=== PATIENT | female | born 1995 | race Caucasian/White ===

== ENCOUNTER 2020-08-14 02:11 | Emergency (ER) | payer BC ==
[2020-08-14 02:31] VITALS: BP 109/59; PULSE 88; TEMP 99.1; BMI 21.2
[2020-08-14 03:38] LABS: HEMATOCRIT 36.4 % (32.4-45.2); HEMOGLOBIN 12.5 GM/dL (10.7-15.3); MCH 30.2 pg (25.7-33.7); MCHC 34.3 g/dl (32.0-36.0); MEAN CELL VOLUME 88.1 fl (80-96); MEAN PLT VOLUME 6.7 fl (7.5-11.1); PLATELET COUNT 475 K/MM3 (134-434); RBC 4.13 M/mm3 (3.60-5.2); RDW 12.6 % (11.6-15.6); WHITE BLOOD COUNT 11.6 K/mm3 (4.0-10.0)
[2020-08-14 04:07] LABS: POTASSIUM 3.9 mmol/L (3.5-5.1)
[2020-08-14 04:09] LABS: CALCIUM 9.7 mg/dL (8.5-10.1)
[2020-08-14 04:10] LABS: ALBUMIN 4.2 g/dl (3.4-5.0); BLOOD UREA NITROGEN 18.2 mg/dL (7-18)
[2020-08-14 04:13] LABS: CREATININE 0.9 mg/dL (0.55-1.3)
[2020-08-14 04:14] LABS: BILIRUBIN,TOTAL 0.3 mg/dL (0.2-1); TOT PROT 7.7 g/dl (6.4-8.2)
== END 2020-08-14 04:48 | disposition home or self-care (01) ==
LOC: JER 02:11
DX: R20.2 Paresthesia of skin (principal)
CPT/HCPCS: 36415; 80053; 85027; 99283-25

== ENCOUNTER 2020-08-29 20:35 | Inpatient (IN) | payer BC ==
[2020-08-29 20:48] VITALS: BMI 21.2
[2020-08-29] MEDS ORDERED: SODIUM CHLORIDE 0.9% 1000 ML INFUS.BAG IV ONE (21:26)
[2020-08-29] MEDS ORDERED: OXcarbazepine 300 MG/5 ML 250 ML BULK BOTTLE PO ONE (21:35)
[2020-08-29 21:40] LABS: HEMATOCRIT 35.8 % (32.4-45.2); LYMPH % 11.7 % (8-40); MCH 30.3 pg (25.7-33.7); MCHC 33.5 g/dl (32.0-36.0); MEAN CELL VOLUME 90.6 fl (80-96); MEAN PLT VOLUME 7.2 fl (7.5-11.1); MONO % 10.2 % (3.8-10.2); NEUT % 77.1 % (42.8-82.8); PLATELET COUNT 369 K/MM3 (134-434); RBC 3.96 M/mm3 (3.60-5.2); RDW 13.8 % (11.6-15.6); WHITE BLOOD COUNT 13.4 K/mm3 (4.0-10.0)
[2020-08-29 21:50] LABS: POTASSIUM 4.7 mmol/L (3.5-5.1)
[2020-08-29 21:51] LABS: ALBUMIN 3.8 g/dl (3.4-5.0); BLOOD UREA NITROGEN 18.8 mg/dL (7-18)
[2020-08-29 21:57] LABS: BILIRUBIN,TOTAL 0.2 mg/dL (0.2-1); TOT PROT 7.4 g/dl (6.4-8.2)
[2020-08-29] MEDS ORDERED: LORazepam 2 MG/ML SDV VIAL IVPUSH ONE (22:02)
[2020-08-29] MEDS ORDERED: LORazepam 2 MG/ML SDV VIAL ONE (22:03)
[2020-08-30] MEDS ORDERED: LORazepam 2 MG/ML SDV VIAL IVPUSH PRN (01:14)
[2020-08-30] MEDS: SODIUM CHLORIDE 1,000 ML IV SCH (01:25)
[2020-08-30] MEDS ORDERED: HEPARIN NA (PORCINE) 5,000 UNITS/ML 1ML VIAL SQ SCH (02:00)
[2020-08-30] MEDS ORDERED: LORazepam 2 MG/ML SDV VIAL ONE (02:51)
[2020-08-30 03:54] LABS: PH,URINE 6.5 (5.0-8.0); URINE APPEARANCE CLEAR; URINE BILIRUBIN NEGATIVE (NEGATIVE); URINE COLOR YELLOW; URINE GLUCOSE (UA) NEGATIVE (NEGATIVE); URINE KETONE NEGATIVE (NEGATIVE); URINE LEUK ESTERASE NEGATIVE (NEGATIVE); URINE NITRITE NEGATIVE (NEGATIVE); URINE PROTEIN NEGATIVE (NEGATIVE); URINE UROBILINOGEN 0.2 mg/dL (0.2-1.0)
[2020-08-30 04:12] LABS: URINE AMPHETAMINES NEGATIVE ng/ml (CUTOFF=500)
[2020-08-30 04:13] LABS: COCAINE, UR NEGATIVE ng/ml (CUTOFF=300)
[2020-08-30 04:14] LABS: PHENCYCLIDINE,URINE NEGATIVE ng/ml (CUTOFF=25)
[2020-08-30 04:15] LABS: METHADONE, UR NEGATIVE ng/ml (CUTOFF=300); OPIATES, URI NEGATIVE ng/ml (CUTOFF=300); URINE BARBITURATES NEGATIVE ng/ml (CUTOFF=200); URINE BENZODIAZEPINES NEGATIVE ng/ml (CUTOFF=200)
[2020-08-30] MEDS: HEPARIN NA (PORCINE) 5,000 UNITS/ML 1ML VIAL SQ SCH ×2 (06:02→14:04)
[2020-08-30 07:52] LABS: BASO % 0.7 % (0-2.0); EOS % 0.4 % (0-4.5); HEMOGLOBIN 11.4 GM/dL (10.7-15.3); LYMPH % 23.9 % (8-40); MCH 30.1 pg (25.7-33.7); MCHC 33.6 g/dl (32.0-36.0); MEAN CELL VOLUME 89.6 fl (80-96); MEAN PLT VOLUME 7.5 fl (7.5-11.1); MONO % 9.5 % (3.8-10.2); NEUT % 65.5 % (42.8-82.8); PLATELET COUNT 366 K/MM3 (134-434); RDW 13.5 % (11.6-15.6); WHITE BLOOD COUNT 11.1 K/mm3 (4.0-10.0)
[2020-08-30 08:10] LABS: POTASSIUM 4.2 mmol/L (3.5-5.1)
[2020-08-30 08:17] LABS: CALCIUM 8.4 mg/dL (8.5-10.1)
[2020-08-30 08:19] LABS: ALBUMIN 3.5 g/dl (3.4-5.0); BLOOD UREA NITROGEN 12.8 mg/dL (7-18); MAGNESIUM 2.3 mg/dL (1.8-2.4)
[2020-08-30 08:21] LABS: CREATININE 0.7 mg/dL (0.55-1.3); PHOSPHOROUS 3.4 mg/dL (2.5-4.9)
[2020-08-30 08:25] LABS: TOT PROT 6.7 g/dl (6.4-8.2)
[2020-08-30] MEDS ORDERED: PT OWN MED DRAWER 7, Y5N ONE (10:06)
[2020-08-30] MEDS: OXcarbazepine 300 MG/5 ML UNIT DOSE CUPS PO SCH (10:58)
[2020-08-30] MEDS ORDERED: HEPARIN NA (PORCINE) 5,000 UNITS/ML 1ML VIAL ONE (14:02)
[2020-08-30] MEDS ORDERED: OLANZapine 10 MG TABLET ONE (21:04)
[2020-08-30] MEDS: OLANZapine 5 MG TABLET PO SCH (21:17)
[2020-08-31] MEDS: SODIUM CHLORIDE 1,000 ML IV SCH (01:49)
[2020-08-31] MEDS ORDERED: LORazepam 2 MG/ML SDV VIAL IVPUSH ONE (04:45)
[2020-08-31] MEDS ORDERED: LORazepam 2 MG/ML SDV VIAL ONE (04:53)
[2020-08-31 09:04] LABS: POTASSIUM 4.1 mmol/L (3.5-5.1)
[2020-08-31 09:08] LABS: BLOOD UREA NITROGEN 10.8 mg/dL (7-18); MAGNESIUM 2.2 mg/dL (1.8-2.4)
[2020-08-31 09:11] LABS: CREATININE 0.7 mg/dL (0.55-1.3)
[2020-08-31] MEDS: OXcarbazepine 300 MG/5 ML UNIT DOSE CUPS PO SCH (09:53)
[2020-08-31] MEDS ORDERED: LORazepam 2 MG/ML SDV VIAL IM ONE (10:16)
[2020-08-31 13:39] LABS: HEMATOCRIT 34.8 % (32.4-45.2); HEMOGLOBIN 11.7 GM/dL (10.7-15.3); MCH 30.2 pg (25.7-33.7); MCHC 33.7 g/dl (32.0-36.0); MEAN CELL VOLUME 89.7 fl (80-96); MEAN PLT VOLUME 7.1 fl (7.5-11.1); PLATELET COUNT 340 K/MM3 (134-434); RBC 3.88 M/mm3 (3.60-5.2); RDW 13.6 % (11.6-15.6); WHITE BLOOD COUNT 8.2 K/mm3 (4.0-10.0)
[2020-08-31] MEDS: LORazepam 2 MG/ML SDV VIAL IM PRN (17:30)
[2020-08-31] MEDS: HALOPERIDOL LACTATE 5 MG/ML IM PRN (17:30)
[2020-08-31] MEDS: OLANZapine 5 MG TABLET PO SCH (21:24)
[2020-09-01] MEDS: LORazepam 2 MG/ML SDV VIAL IM PRN ×2 (01:35→08:23)
[2020-09-01] MEDS: HALOPERIDOL LACTATE 5 MG/ML IM PRN (01:39)
[2020-09-01] MEDS: OXcarbazepine 300 MG/5 ML UNIT DOSE CUPS PO SCH ×3 (10:00→11:06)
[2020-09-01] MEDS ORDERED: levETIRAcetam 500 MG/5 ML INJECTION VIAL IVPB SCH (14:00)
[2020-09-01 18:46] VITALS: BP 105/59; PULSE 73; TEMP 98.2
== END 2020-09-01 19:00 | disposition short-term general hospital (02) | DRG 101 ==
LOC: JER 20:35 → JERBED 21:40 → J5WEST-2 08-30 23:57
PROVIDERS: ADMIT Internal Medicine; ATTEND Internal Medicine
DX: G40.909 Epilepsy, unspecified, not intractable, without status epilepticus (principal); F50.2 Bulimia nervosa; Z91.14 Patient's other noncompliance with medication regimen; G47.00 Insomnia, unspecified; R44.1 Visual hallucinations; Z68.21 Body mass index [BMI] 21.0-21.9, adult
CPT/HCPCS: 36415; 70551-TC; 71045-TC-FY; 80048; 80053; 80164; 80177; 80307; 81003; 82962; 83615; 83735; 84100; 84146; 84703; 85025; 85027; 86780; 87086; 87491; 87591; 93005; 93010; 93970-TC; 99285-25; C9803; U0003